=== PATIENT | male | born 1995 | race Caucasian/White ===

== ENCOUNTER 2018-12-15 18:18 | Emergency (ER) | payer OTHER ==
[2018-12-15 18:34] VITALS: RESP 18
[2018-12-15] MEDS ORDERED: LIDOCAINE 1% INJ 10MG/ML (20 ML MDV) SQ ONE (19:01)
--- NOTE | 2018-12-15 19:07 | ED ---
Wound/Laceration HPI - General Chief Complaint: Wound/Laceration Stated Complaint: rt leg lac Time Seen by Provider: 12/15/18 18:38 Source: patient Mode of arrival: wheelchair Limitations: no limitations - History of Present Illness Initial Comments: 23-year-old male patient presents to the emergency department as a transfer from [facility] for evaluation of a laceration to the right thigh. Patient states around 2:00 he was using a chainsaw when he slipped and got his leg. Patient was seen and evaluated at [facility] they updated his tetanus vaccine and given Cleocin. Patient denies any numbness or tingling to the leg. Bleeding is under control. Denies any difficulty with range of motion. Denies any other injuries. Patient denies any headache, neck pain, back pain, chest pain, shortness of breath, dizziness, weakness, abdominal pain, nausea, vomiting, or difficulties with bowel movements or urination. - Related Data Home Medications Medication Instructions Recorded Confirmed Lisdexamfetamine Dimesylate 60 mg PO DAILY 12/15/18 12/15/18 [Vyvanse] Metaxalone 800 mg PO QID PRN 12/15/18 12/15/18 Previous Rx's Medication Instructions Recorded Clindamycin HCl [Cleocin] 300 mg PO Q8H #21 cap 12/15/18 Ibuprofen [Motrin] 600 mg PO Q8HR PRN #30 tab 12/15/18 Allergies Allergy/AdvReac Type Severity Reaction Status Date / Time Penicillins Allergy Rash/Hives Verified 12/15/18 19:11 Review of Systems ROS Statement: Those systems with pertinent positive or pertinent negative responses have been documented in the HPI. ROS Other: All systems not noted in ROS Statement are negative. Past Medical History Past Medical History: No Reported History History of Any Multi-Drug Resistant Organisms: None Reported Past Surgical History: Appendectomy Past Psychological History: ADD/ADHD Smoking Status: Current every day smoker Past Alcohol Use History: Occasional Past Drug Use History: None Reported General Exam Limitations: no limitations General appearance: alert, in no apparent distress, other (Physical well- developed, well-nourished adult male patient in no acute distress. Vital signs upon presentation are temperature 98.6F, pulse 93, respirations 18, blood pressure 132/82, pulse ox 100% on room air.) Respiratory exam: Present: normal lung sounds bilaterally. Absent: respiratory distress, wheezes, rales, rhonchi, stridor Cardiovascular Exam: Present: regular rate, normal rhythm, normal heart sounds. Absent: systolic murmur, diastolic murmur, rubs, gallop, clicks GI/Abdominal exam: Present: soft, normal bowel sounds. Absent: distended, tenderness, guarding, rebound, rigid Extremities exam: Present: full ROM, normal capillary refill, other (9 cm laceration noted to the right distal anteriolateral thigh, bleeding is controlled. Patient has full range of motion with no limitation. He has 5 out of 5 strength plantar and dorsiflexion. Skin is pink, warm, and dry. Cap refills less than 3 seconds. Pedal and posttibial pulses 2+ and equal bilaterally.). Absent: normal inspection, tenderness, pedal edema, joint swelling, calf tenderness Neurological exam: Present: alert, oriented X3, CN II-XII intact Psychiatric exam: Present: normal affect, normal mood Skin exam: Present: warm, dry, intact, normal color. Absent: rash Course Vital Signs 12/15/18 18:31 Temperature 98.6 F Pulse Rate 93 Respiratory 18 Rate Blood Pressure 132/82 O2 Sat by Pulse 100 Oximetry Procedures - Laceration Laceration #1 Consent Obtained: verbal consent Indication: laceration Site: lower extremity Size (cm): 9 Description: linear, clean Depth: simple, single layer Anesthetic Used: lidocaine 1% Anesthesia Technique: local infiltration Amount (mls): 20 Pre-repair: irrigated extensively Type of Sutures: nylon (13), vicryl (3) Size of Sutures: 4-0 Number of Sutures: 16 Technique: simple, interrupted Patient Tolerated Procedure: well, no complications Medical Decision Making - Medical Decision Making 23-year-old male patient presented to the emergency department as a transfer from [facility] for evaluation of large laceration to the right thigh. Physical examination did reveal a simple 9 cm laceration involving subcutaneous tissue only. There is no muscle involvement or evidence of tendon injury with extensive evaluation of the wound. Patient had full range of motion of the knee and foot without limitation. 5 out of 5 dorsiflexion and plantar flexion strength intact. Did repair the laceration as documented. Patient was updated on his tetanus vaccine at [facility] and started on Cleocin. I did review x-rays from the facility showed no evidence of bony abnormalities. We'll provide prescription for Cleocin. Patient is educated regarding wound care and signs or symptoms of infection. He is instructed to follow up with his primary care physician for reevaluation of the wound in 1-2 days. He is instructed to return in 14 days for suture removal. Return parameters were discussed in detail. He verbalizes understanding and agrees with this plan. Disposition Clinical Impression: Laceration of right thigh Disposition: HOME SELF-CARE Condition: Good Instructions (If sedation given, give patient instructions): Care For Your Stitches (ED), Laceration (ED) Additional Instructions: Keep wound clean and dry. Cleanse twice daily with warm water and antibacterial soap. This can get wet in the shower, but do not submerge wound into water. Return in 14 days to have the stitches removed. Follow-up through primary care physician for recheck of the wound in 1-2 days. Complete antibiotic prescription in full. Return to the emergency department immediately for any ne w, worsening, or concerning symptoms. Prescriptions: Clindamycin HCl [Cleocin] 300 mg PO Q8H #21 cap Ibuprofen [Motrin] 600 mg PO Q8HR PRN #30 tab PRN Reason: Pain Is patient prescribed a controlled substance at d/c from ED?: No Referrals: Sakshi Dominguez MD [Primary Care Provider] - 1-2 days Time of Disposition: 20:03
[2018-12-15] MEDS ORDERED: ACET/COD 300 MG/30 MG STARTER PACK 6 TAB BTL PO STA (19:58)
[2018-12-15] MEDS ORDERED: IBUPROFEN 600 MG STARTER PACK 4 TAB BTL PO STA (19:59)
[2018-12-15 21:05] VITALS: BP 134/72; PULSE 94; TEMP 98
== END 2018-12-15 21:06 | disposition home or self-care (01) ==
LOC: EC 18:18
DX: S71.111A Laceration without foreign body, right thigh, initial encounter (principal); F90.9 Attention-deficit hyperactivity disorder, unspecified type; F17.200 Nicotine dependence, unspecified, uncomplicated; Z79.899 Other long term (current) drug therapy; Z88.0 Allergy status to penicillin; W29.3XXA Contact with powered garden and outdoor hand tools and machinery, initial encounter
CPT/HCPCS: 12004; 99283

== ENCOUNTER 2020-12-09 16:32 | Emergency (ER) | payer OTHER ==
[2020-12-09 16:52] VITALS: BP 124/67; PULSE 100; RESP 18; TEMP 98.9
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
[2020-12-09] MEDS ORDERED: ACET/COD 300 MG/30 MG STARTER PACK 6 TAB BTL PO STA (18:01)
[2020-12-09] MEDS ORDERED: HYDROmorphone 1 MG/ML 1 ML SYRINGE IM STA (18:01)
== END 2020-12-09 18:23 | disposition home or self-care (01) ==
LOC: EC 16:32
DX: S42.401A Unspecified fracture of lower end of right humerus, initial encounter for closed fracture (principal); F90.9 Attention-deficit hyperactivity disorder, unspecified type; Z79.899 Other long term (current) drug therapy; Z88.0 Allergy status to penicillin; V49.9XXA Car occupant (driver) (passenger) injured in unspecified traffic accident, initial encounter; Y92.410 Unspecified street and highway as the place of occurrence of the external cause
CPT/HCPCS: 73060; 99283; 29105; 96372; J1170

== ENCOUNTER → 2023-04-19 | Outpatient (CLI) | payer BC ==
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
== END | disposition home or self-care (01) ==
LOC: RADUSWWP 07:30
PROVIDERS: ATTEND Family Medicine
DX: K76.0 Fatty (change of) liver, not elsewhere classified (principal); K83.8 Other specified diseases of biliary tract; R74.01 Elevation of levels of liver transaminase levels; R74.8 Abnormal levels of other serum enzymes
CPT/HCPCS: 76705